=== PATIENT | male | born 1990 | race Caucasian/White ===

== ENCOUNTER 2025-02-14 10:05 | Day surgery (SDC) | payer BC, SELFPAY ==
--- NOTE | 2025-02-06 08:48 | EKG12_ITS ---
Test Reason : PREOP Blood Pressure : */* mmHG Vent. Rate : 82 BPM Atrial Rate : 82 BPM P-R Int : 166 ms QRS Dur : 102 ms QT Int : 370 ms P-R-T Axes : 33 44 23 degrees QTcB Int : 432 ms Normal sinus rhythm Normal ECG Confirmed by JUAN A FRAIRE, JAGRUTI ([id number]), movie editor TRELL BROWN ([id number]) on 02/07/2025 6:48:03 AM Referred By: Jossue Sheffield Confirmed By: JAGRUTI VELAZCO MD
[2025-02-06 09:30] LABS: Hematocrit 40.7 % (40-54); Hemoglobin 14.0 g/dL (13.0-16.5); Immature Granulocytes Count 0.010 X10^3/uL (0.0-0.0); Mean Corp Hgb Conc 34.4 g/dL (32-36); Mean Corpuscular Volume 89.3 fL (80-94); Mean Platelet Vol. 11.3 fl (6.2-12.0); NRBC Flagged by Analyzer 0 % (0-5); Platelet Count 191 K/mm3 (150-450); RBC Distribution Width CV 11.9 % (11.6-14.6); RBC Distribution Width SD 38.5 fl (35.1-43.9); Red Blood Count 4.56 M/mm3 (4.6-6.2); White Blood Count 5.5 K/mm3 (4.4-11.0)
[2025-02-06 11:26] LABS: Anion Gap 12 (5-15); BUN 13 mg/dL (4-19); BUN/Creat Ratio 14.7 RATIO (10-20); Calcium,Total 9.5 mg/dL (7.6-11.0); Carbon Dioxide 22.4 mmol/L (21.0-32.0); Chloride 104 mmol/L (98-108); Glucose 158 mg/dL (70-99); HIV Nonreactive (Nonreactive); Magnesium 1.8 mg/dL (1.5-2.2); Potassium 4.5 mmol/L (3.3-5.1)
[2025-02-14] VITALS (14 sets, daily range): BP systolic 96–146; BP diastolic 58–95; PULSE 77–94; RESP 12–18; TEMP 36.3–36.4; O2SAT 96–100; BMI 43.0
[2025-02-14] MEDS: Lactated Ringers 1,000 ML 15 ML IV (10:40)
[2025-02-14] MEDS: Magnesium 2 GM for ERAS IV (10:41)
--- NOTE | 2025-02-14 11:05 | PCM.PRE.AN2 ---
ASA Classification* ASA Classification ASA Classification: 3 Assessment & Plan Anesthesia* Anesthesia Assessment Anesthesia Assessment: Discussed sedation and/or anesthesia options, risks, benefits, and alternatives with patient/parents/legal guardian/POA. Questions invited. The patient/parents/legal guardian/POA seems to understand and agrees to proceed with anesthesia plan. Reviewed the physical assessment, medical history, allergy history and patient home medications list prior to surgery/procedure/anesthetic and documented any changes. Performed airway and anesthesia risk assessments. Procedural Plan Add'l anesthesia plan details: I had a thorough discussion with the patient in regards to the plan for general anesthesia. We discussed that we will attempt to stabilize his neck is much as possible given his significant cervical radiculopathy symptoms with any sort of neck manipulation. I discussed with the patient the plan for general anesthesia with endotracheal tube. We discussed potential risks or side effects including but not limited to sore throat, injury to teeth gums or lips, allergic reaction to any of the medications we use, IntraOp awareness, postop ventilation, blood transfusion, additional access, IA, stroke, seizure, worsening of his cervical radiculopathy and/or spinal cord injury from neck manipulation. Patient understands and would like to proceed with the surgery. I answered all of his questions to the best my ability. Anesthesia Type Anesthesia Type: General History Source History Obtained from:: Patient and Chart Anesthesia Focused Assessment* Temperature: 97.3 F Pulse Rate: 87 Blood Pressure: 146/95 Respiratory Rate: 18 Pulse Ox: 99 Oxygen Delivery Method: Room Air Airway Assessment Mouth opens: 1 cm Mallampati Score: III Teeth Condition: Intact Neck Range of motion (ROM): Limited ROM (Extremely limited range of motion of his neck as any sort of movement of his neck causes some worsening of his pain in his cervical radiculopathy symptoms.) Labs Anesthesia Preop lab: CBC WBC 5.5 K/mm3 (4.4-11.0) 02/06/25 09:10 02/06/25 RBC 4.56 M/mm3 (4.6-6.2) L 02/06/25 09:10 02/06/25 Hgb 14.0 g/dL (13.0-16.5) 02/06/25 09:10 02/06/25 Hct 40.7 % (40-54) 02/06/25 09:10 02/06/25 Plt Count 191 K/mm3 (150-450) 02/06/25 09:10 02/06/25 CHEMISTRY Potassium 4.5 mmol/L (3.3-5.1) 02/06/25 09:10 02/06/25 Sodium 138 mmol/L (133-145) 02/06/25 09:10 02/06/25 Magnesium 1.8 mg/dL (1.5-2.2) 02/06/25 09:10 02/06/25 BUN 13 mg/dL (4-19) 02/06/25 09:10 02/06/25 Creatinine 0.85 mg/dL (0.70-1.20) 02/06/25 09:10 02/06/25 Glucose 158 mg/dL (70-99) H 02/06/25 09:10 02/06/25 COAG Pre-Assessment Diagnosis/Proposed Procedure Planned Operative Procedure(s): CERVICAL DISC REPLACEMENT C4-5 Anesthesia History 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 When Was Last Pacemaker Check QUESTION #4 FULL TEXT: You/Your Family Experience fever (hyperthermia) with Anesthesia Last Oral Intake Last Oral intake: Last Oral Intake NPO since 08:00 02/14/25 10:30 Meds taken in AM with sips of No 02/14/25 10:30 water? 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 Female No 01/31/25 14:13 HX of Motion Sickness No 01/31/25 14:13 HX of N/V After Surgery No 01/31/25 14:13 Non-Smoker Yes 01/31/25 14:13 Duration of Surgery greater Yes 01/31/25 14:13 than 60 minutes Number of Risk Factors 2 01/31/25 14:13 PONV Score Moderate Risk 01/31/25 14:13 Height & Weight Height & Weight: Anesthesia: Height & Weight Height 5 ft 11 in 02/14/25 10:30 Weight: 140 kg 02/14/25 10:30 Body Mass Index (BMI) 43.0 02/14/25 10:30 Respiratory Assessment Respiratory Assessment - paperback machine operator: Respiratory Tract Infection Hx - paperback machine operator Hx Respiratory Tract Infection No 01/31/25 14:13 STOP Sleep Apnea STOP Sleep Apnea - paperback machine operator: STOP Sleep Apnea - paperback machine operator Hx Hypertension Yes: CONTROLLED WITH MEDS 01/31/25 14:13 Hx Sleep Apnea No 01/31/25 14:13 CPAP BIPAP Do you snore loudly (louder Yes 01/31/25 14:13 than talking or can be heard Do you often feel tired/ No 01/31/25 14:13 fatigued/ sleepy during daytime? Has anyone observed you stop No 01/31/25 14:13 breathing during sleep? STOP Results Positive 01/31/25 14:13 QUESTION #5 FULL TEXT : Do you snore loudly (louder than talking or can be heard through closed doors)? 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 Specify any problems Hx of Preganancy in last 3 N/A 01/31/25 14:13 Months Nurse Filling Out Transfusion [id number] 01/31/25 14:13 & Questions: Date: 01/31/25 01/31/25 14:13 Time: 14:17 01/31/25 14:13 Patient unable to answer at this time (ie. 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: /Reproductive Hx- paperback machine operator Hx Now Gestational Age (in weeks): EDC: Hx Hx Para Hx Section SAB Active Medications Active Medications: Current Medications Generic Name Dose Route Start Last Admin Trade Name Freq PRN Reason Stop Dose Admin Acetaminophen 1,000 mg 02/14/25 12:00 02/14/25 10:44 Acetaminophen 500 Mg Tablet PO 02/14/25 12:01 1,000 mg PREOP ONE Administration Dexamethasone Sodium Phosphate 8 mg 02/14/25 12:00 Dexamethasone 10 Mg/Ml Vial IV 02/14/25 12:01 INTRAOP ONE Dexamethasone Sodium Phosphate 4 mg 02/14/25 12:00 Dexamethasone 4 Mg/Ml Vial IV 02/14/25 12:01 POSTOP ONE Cefazolin Sodium 3 gm/ Sodium 115 mls @ 150 mls/hr 02/14/25 12:00 Chloride IV 02/14/25 12:45 INTRAOP ONE Tranexamic Acid 1,000 mg/ 110 mls @ 440 mls/hr 02/14/25 12:00 Sodium Chloride IV 02/14/25 12:14 INTRAOP ONE Tranexamic Acid 1,000 mg/ 110 mls @ 440 mls/hr 02/14/25 12:00 Sodium Chloride IV 02/14/25 12:14 INTRAOP ONE Magnesium Sulfate 2 gm/ 104 mls @ 208 mls/hr 02/14/25 12:00 02/14/25 10:41 Dextrose IV 02/14/25 12:29 208 mls/hr INTRAOP ONE Administration Lactated Ringer's 1,000 mls @ 15 mls/hr 02/14/25 10:30 02/14/25 10:40 IV 15 mls/hr .Q48H WENDY Administration Insulin Human Lispro 1 - 6 unit 02/14/25 12:00 Insulin Lispro 100 Unit/Ml Insuln.Pen SC Q4H PRN PRN BG>/= 180, SEE PROTOCOL Protocol PFSH Medical History History of steroid therapy Injury of back Back pain Former smoker Hypercholesteremia Hypertension Home Medications ?Medication ?Instructions ?Recorded ?Last Taken ?Type atorvastatin 40 mg tablet 40 mg PO QDAY 10/07/24 02/13/25 History fexofenadine-pseudoephedrine ER 1 tab PO QAM 10/07/24 02/13/25 History 180 mg-240 mg tablet,ext.release 24 hr (Christine-D 24 Hour) lisinopril 20 mg tablet 20 mg PO QDAY 10/07/24 02/13/25 History naproxen 220 mg-diphenhydramine 25 1 tab PO QPM PRN pain 01/31/25 02/07/25 History mg tablet (Aleve PM) Allergy/AdvReac Type Severity Reaction Status Date / Time gabapentin Allergy Mild dizzy Verified 02/14/25 10:28 prednisone Allergy Unknown High blood Verified 02/14/25 10:28 pressure Surgical History H/O wrist surgery Social History Smoking Status: Never smoker Review of Systems (Anesthesia) ROS Narrative System reviewed and no additional complaints, except as documented. Physical Exam Const alert and oriented x3 Neck Neck Narrative: Minimal neck mobility. Resp normal respiratory effort and normal air movement Cardio regular rate Neuro oriented x3 and moves all extremities Neuro Narrative: Preoperative bilateral hand nurse executive strength intact, sensation to light touch decreased in left upper extremity. Negative Laurel's bilaterally. Lower extremity strength with knee flexion extension and plantar and dorsi flexion intact bilaterally. Patient denies bowel or bladder incontinence.
--- NOTE | 2025-02-14 11:58 | PCM.HP.BLA ---
History and Physical MR#: [id number] Acct: [id number] Name: BANDAR WILSON Rep #: [id number] : 1990 Provider: Dr. Jossue Sheffield MD Age/Sex: 34/M Location: [facility] [place] Status: Signed Intake Vital Signs 10/07/2507:28 02/09/2514:52 Height 5 ft 11 in 5 ft 11 in Weight: 312 lb 315 lb BMI 43.4 43.9 Intake Visit Reasons: cervical spine Chief Complaint: Pre op Accompanied by: Self Is patient in pain?: Yes Pain scale (1-10): 7 Allergies gabapentin Allergy (Mild, Verified 02/09/25 14:55) dizzyprednisone Allergy (Unknown, Verified 02/09/25 14:55) High blood pressure Medications ?Medication ?Instructions ?Recorded ?Confirmed ?Type atorvastatin 40 mg tablet 40 mg PO QDAY 10/07/24 02/09/25 History fexofenadine-pseudoephedrine ER 1 tab PO QAM 10/07/24 02/09/25 History 180 mg-240 mg tablet,ext.release 24 hr (Christine-D 24 Hour) lisinopril 20 mg tablet 20 mg PO QDAY 10/07/24 02/09/25 History naproxen 220 mg-diphenhydramine 25 1 tab PO QPM PRN pain 01/31/25 02/09/25 History mg tablet (Aleve PM) Have you fallen in the past year?: No PFSH Medical History History of steroid therapy Injury of back Back pain Former smoker Hypercholesteremia Hypertension Surgical History H/O wrist surgery Social History Smoking Status: Former smoker HPI cervical spine Details: This documentation accurately reflects the service provided and the decisions made by me, Dr. Jossue Sheffield MD 02/09/25 0820. Part of today?s visit was documented by Rashad Henriquez MA, acting as scribe. BANDAR WILSON is a 34 year old M here today for pre op for Cervical Disc Arthroplasty C4-5 on 02-14-25. Patient would like to discuss more about the surgery. He would like to know what he can and can't do after the surgery. The patient is a 34-year-old male presenting for a cervical disc replacement surgery at the C4-5 level. The patient has a history of cervical disc herniation at the C4-5 level, which requires surgical intervention. The planned procedure involves a disc replacement to alleviate pressure on the spinal cord and nerves. The patient is not on any blood thinners and has no major medical issues that would complicate the surgery. The patient also reports a history of sleep apnea, for which no CPAP therapy is currently used. The patient did not complete the second part of the sleep study. - Respiratory: Reports sleep apnea, denies use of CPAP. Attestation: Documentation on this patient encounter was supported using ambient scribe technology/ voice AI technology. The patient consented to recording for the purpose of documenting the encounter. Provider reviewed content of the generated note prior to signature. 01/10/25: BANDAR WILSON is a 34 year old M here today for continued neck pain. He states that his occupational doctors at [employer] told him that it doesn't look like workers comp is going to approve the surgery as they are claiming that he had pre existing conditions that caused the neck pain. He is here today to re-discuss surgery hoping it will be approved through his regular health insurance. He does feel that his symptoms have worsened since his last visit. The pain that radiated down his left arm has become more consistent along with worsened pain in the neck and arm. In the beginning of November he noticed that he was getting cramping/muscle spasms in his arm along with a pulsating sensation that causes his fingers to curl and is unable to open his hand until the cramping stops. this has happened twice in the left arm and once in the right arm. Also when this happened he would get more intense pain down both arms but the left side still being worse. He did have numbness/tingling before his injury but it was not as bad and worsened with the injury. The injury was that he felt a pop in his upper back/low neck which caused immediate pain with numbness/tingling in the left arm. 10/07/24: BANDAR WILSON is a 33 year old M here today for evaluation of neck and back pain. He reports an injury at work in April 2024 where he was installing a radiator into a tractor, he was lifting the radiator above his head and felt a pop in his neck and felt immediate numbness into his left arm. Since then he reports constant pain in his upper back and neck. He reports numbness and tingling into his BUE. He did try PT for a few weeks but he was not able to tolerate it due to the pain. He did see Dr. Johnson in pain management for an injection and his last injection was August 29 2024. He states the injection was minimally helpful for ten days. Dr. Childs recommended that he be evaluated by our office. He did have an MRI in May at [facility] which he reports showed bulged dics and stenosis. Patient is RHD. 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 Patient denies any balance or dexterity issues. He stopped PT after 3-4 weeks due to the pain that it gave him. Will get pain when lifting any weight. He describes the pain at the base of the cervical spine and down into the back. He will get pain at the shoulder blades into the shoulders and constant pain into the arm, down into the elbow and numbness/tingling into the finger tips. Denies any nerve conduction testing. The injection did not help the pain in the neck or back but did give relief from the shooting pain into the arms for about 10 days. Patient is non-diabetic, does not take any blood thinners, he does have hypertension and high cholesterol. Did do a sleep study and he may have mild sleep apnea but did not require a mask. Ortho Exam General General: Yes no acute distress Neurologic: Yes alert and Yes oriented x3 Psychologic: Yes reasonable and appropriate Spine SPINE TESTING CERVICAL THORACIC LUMBAR Musculoskeletal Strength 0=absent - 5=normal Details: Examination of the neck shows midline and bilateral paraspinal tenderness throughout the cervical region. Neurologic motion of upper extremity shows 5 x 5 power in all extremities of left shoulder abduction which is grade 4. Laruel's is negative. Romberg's is positive. Tandem gait shows imbalance. There is no hyperreflexia in lower extremities. Coding Level of Care Code Off vis,est,level 4 Diagnoses Cervical myelopathy with cervical radiculopathy G95.9; M54.12 Time Spent (min) 35 Assessment and Plan Assessment and Plan (1) Cervical myelopathy with cervical radiculopathy: Status: Acute Plan Again reviewed previous imaging. Multilevel cervical disc degeneration and disc bulges noticed. At C4-5 there is left worse than right paracentral disc bulges with possible osteophytes causing cord compression along with foraminal stenosis. Reversal of cervical lordosis noticed. Patient is here for continued neck pain that has worsened since his last visit in September. Again explained imaging findings in detail. Again explained options of treatment which include continued nonoperative treat measures versus surgery. Explained to patient since he has tried physical therapy and injections and did not get any relief with either of these then it might be time to consider surgery. Spoke to patient about the surgical procedure and that there are 2 different surgeries that could be done for his situation. Discussed ACDF versus disc replacement. Discussed pros and cons of each. I recommend C4-5 disc replacement surgery to halt the progression of myelopathy and improve on the radiculopathy. Explained the risks, benefits, pros and cons to the surgical procedure. 1. Cervical disc herniation at C4-5 - The patient is scheduled for a disc replacement surgery to relieve pressure on the spinal cord and nerves. - Post-operative care includes monitoring for breathing issues due to sleep apnea, and ensuring mobility to prevent complications such as blood clots. 2. Sleep apnea - No current CPAP therapy is used. - Post-operative monitoring will include observation for any breathing difficulties, especially during recovery from anesthesia. Discussed this procedure in detail and explained the risks, benefits and alternatives. The risks of surgery include but are not limited to infection, bleeding, injury to nerves and vessels, dysphagia, dysphonia, hematoma formation, need for further surgery, Rodney syndrome, recurrent laryngeal nerve injury, persistent pain, persistent numbness and weakness, DVT, pulmonary embolism, pneumonia, atelectasis, prosthesis malposition, hypermobility, adjacent segment degeneration, spinal cord injury, nerve root injury, cardiopulmonary event. Answered all questions to the patient?s satisfaction. Patient understands and agrees to proceed with surgery. Consent was signed.
[2025-02-14] MEDS: Cefazolin 3 GM in 0.9% Normal Saline (100mL Bag) 100 ML IV (12:38)
--- NOTE | 2025-02-14 12:50 | RAD_ITS ---
PROCEDURE: CERV SPINE 2 OR 3 VIEWS 02/14/2025 REASON FOR EXAM: CERVICAL DISC ARTHROPLASTY C4-5 TECHNIQUE: CERV SPINE 2 OR 3 VIEWS FINDINGS: Fluoroscopic guidance was used intraoperatively for this cervical disc arthroplasty at C4-C5 surgery. Total 5 images were obtained. Total fluoroscopy time was 11.5 seconds Total radiation dose was 4.45 mGy. RAD/Cerv Spine 2 or 3 Views IMPRESSION: Fluoroscopic guidance was used intraoperatively. Please refer to the operative note for further details. IMPRESSION: Fluoroscopic guidance was used intraoperatively. Please refer to the operative note for further details. Reading Location: [id number]
[2025-02-14] MEDS: TRANEXAMIC ACID 1,000 MG in 0.9% Normal Saline (100mL Bag) 100 ML 440 MG IV ×2 (13:05→14:30)
--- NOTE | 2025-02-14 15:07 | PCM.OPRPT ---
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, radiculomyelopathy Post-Operative Diagnosis: Same Surgery/Procedure Performed: C4-5 cervical disc replacement supervisor chemical: Yes Operations Recruiter: Dorcas Nevarez Tasks completed by printing bindery assistant: Closing, Implanting device, Hemostasis: Electrocautery and Retracting Type of Anesthesia: General RN Documented Start/Stop Times: Operation Date: 02/14/25 12:00 Case Time Into Pre-Op 02/14/25 10:19 Out of Pre-Op 02/14/25 12:33 Anesthesia Start 02/14/25 12:38 Into Room 02/14/25 12:38 Procedure Start 02/14/25 13:20 Procedure End 02/14/25 15:04 Procedure Start Time: 13:20 Procedure Stop Time: 15:04 Select all DRAINS/GRAFTS/IMPLANTS that apply: Prosthetic device Prosthetic device details: ZimVie Mobi-C cervical disc replacement prosthesis Estimated Blood Loss: 20 cc Specimen collected: No Description of surgery: Preoperative diagnosis: C4-5 disc degeneration with stenosis, with radiculomyelopathy Postoperative diagnosis: Same Name of procedure: C4-5 anterior cervical disc replacement - Cervical disc replacement C4-5, CPT code 02750 Attending surgeon: Jossue Sheffield M.D. Anesthesia: Gen. endotracheal Estimated blood loss: 20 mL Complications: None Instrumentation used: [employer] Mobi-C cervical disc replacement implants Indications: The patient is a pleasant 34-year-old gentleman who presented with symptoms of neck pain, left upper extremity radiation, hand numbness, progressive difficulty with dexterity and balance. MRI revealed C4-5 disc degeneration with stenosis. In order to halt the progression of myelopathy, patient requested surgical intervention. All risks and benefits of the procedure were explained to the patient. The risks include but are not limited to infection, bleeding, injury to nerves and vessels, vertebral artery injury, spinal cord injury, paralysis, vocal cord paralysis, injury to esophagus, need for further procedures, adjacent segment degeneration, heterotopic ossification, implant loosening, implant failure, DVT, pulmonary embolism, cardiopulmonary event, etc. Procedure: The patient was identified in the preoperative suite using unique patient identifiers. Skin was marked consent was taken and all questions were answered. The patient was then brought back to the operative room and a timeout was performed. General endotracheal anesthesia was given. Intraoperative neuro monitoring leads were applied. The patient was carefully positioned supine on a regular OR table. A lateral x-ray with a C-arm was done to identify the level and to define the incision. The anterior neck was then prepped and draped in the usual fashion. A final timeout was then performed. A transverse skin incision was then taken to the left of midline 2 fingerbreadths above the clavicle. Subcutaneous tissue was then divided with Bovie. Platysma was identified and cut transversely with scissors. The fascial interval between the sternocleidomastoid and the larynx was developed. Omohyoid was identified and mobilized medially and inferiorly. Carotid sheath was laterally while the esophagus with the larynx was retracted medially to reach the prevertebral fascia. All prevertebral layers of fascia were bluntly dissected and a [place] pin was placed into one of the bodies. A lateral C-arm image was used to confirm the correct level. Once this was done longus coli muscle was elevated on both sides at and above and below C4-5 disc. Shadow line retractors were then placed with great care to protect the esophagus. A long handle knife was then used to perform annulotomy at C4-5. Disc fragments were removed with the pituitary. [place] pins were placed in C4 and C5 for disc distraction. Curettes were utilized to remove cartilage from the endplates. Discectomy was performed laterally up to the uncovertebral joints. Adequate decompression was performed, PLL was thinned out and partially resected. Foramina were decompressed without taking down the uncovertebral processes. Once the disc space was prepared, trials of various sizes were utilized. Thorough irrigation was given. Mobi-C anterior cervical disc replacement implant of size 17 x 15 mm with 5 mm height was then placed under fluoroscopic guidance. Adequate positioning was noticed on AP and lateral views. Thorough irrigation was again given. Hemostasis was achieved with FloSeal and bipolar cautery. Closure was done with 3-0 Vicryl for the platysma and subcutaneous tissue layers and 4-0 Monocryl for the skin. Steri-Strips were applied and dressing was done with 4 x 4 gauze and Tegaderm. A cervical collar was then applied. The patient was then woken up from anesthesia extubated and taken to PACU in stable condition. Intraoperative neuro monitoring was performed throughout this procedure. Motor evoked potentials were run periodically. All potentials remained at baseline throughout the procedure. I was present for the entire surgery and performed the surgery myself. Watch Repairer Apprentice Dorcas Nevarez PA-C. My physician ex assistant/program director was a vital part of this case. They were important in appropriate retraction during the case, and protection of soft tissues during the procedure. Their intimate knowledge of the case and my steps aided in safe and expedient completion of the procedure as well as appropriate position of the patient during the surgery. They were also vital in assisting with closure under my direct supervision. Surgical Findings: See operative note Complications Complications: No
--- NOTE | 2025-02-14 15:19 | PCM.POST.ANE ---
Anesthesia: Postop Eval I Current Vital Signs Temperature: 97.5 F Pulse Rate: 85 Blood Pressure: 115/82 Respiratory Rate: 16 Pulse Ox: 99 Oxygen Delivery Method: Nasal Cannula (4L per ERAS) Oxygen Flow Rate (L/min): 4 Assessment Airway patent: Yes Spontaneous unlabored respirations: Yes Mental status: Awake and Calm nausea: No Vomiting: No Anesthesia Complication: No Fluid Hydration Crystalloid volume administer (ml): 1,300 Total IV fluid infused: 1,300 Progress Note Anesthesia document: Postop Eval 1 completed: Yes
--- NOTE | 2025-02-14 17:08 | SUR.PHASEI ---
PATIENT REPORTS HE HAS CHRONIC NUMBNESS/TINGLING TO ARMS WHICH IS ALREADY IMPROVING, STATES COMES AND GOES, FREQUENTLY EXERCISING HANDS. ABLE TO GRASP AND HOLD GLASS OF ICE, FEED SELF.
--- NOTE | 2025-02-14 18:17 | POSTOPAN2_ITS ---
Anesthesia Postop Eval I Sum Postop Eval Completion status Anesthesia document: Postop Eval 1 completed: Yes Anesthesia Postop Eval I Summary Anesthesia Postop Eval I Summary: Anesthesia Postop Eval I: Assessment Summary Airway patent Yes 02/14/25 15:21 NETWORKING [email or web address].[email or web address] Spontaneous unlabored Yes 02/14/25 15:21 NETWORKING SPECIALIST.[email or web address] respirations Mental status Awake,Calm 02/14/25 15:21 NETWORKING SPECIALIST.[email or web address] nausea No 02/14/25 15:21 NETWORKING SPECIALIST.GDOTT Vomiting No 02/14/25 15:21 NETWORKING SPECIALIST.GDOTT Anesthesia Postop Eval I: Fluid Summary Crystalloid volume administer 1,300 02/14/25 15:21 NETWORKING SPECIALIST.GDOTT (ml) Colloids volume administered ( ml) Blood Product volume administered (ml) Total IV fluid infused 1,300 02/14/25 15:21 NETWORKING SPECIALIST.GDOTT Anesthesia Postop Eval I: Summary Notes Anesthesia Complication No 02/14/25 15:21 NETWORKING SPECIALIST.GDOTT Anesthesia Complication Comment: Post-operative progress note Anesthesia: Postop Eval II Evaluation Mental status: Awake and Calm Pain Level: 4 nausea: No Vomiting: No Complications Anesthesia Complication: No
--- NOTE | 2025-02-14 18:17 | PCM.POSTANE2 ---
Anesthesia Postop Eval I Sum Postop Eval Completion status Anesthesia document: Postop Eval 1 completed: Yes Anesthesia Postop Eval I Summary Anesthesia Postop Eval I Summary: Anesthesia Postop Eval I: Assessment Summary Airway patent Yes 02/14/25 15:21 DIRECTOR OF CODING.[email or web address] Spontaneous unlabored Yes 02/14/25 15:21 DIRECTOR OF CODING.GDOTT respirations Mental status Awake,Calm 02/14/25 15:21 DIRECTOR OF CODING.GDOTT nausea No 02/14/25 15:21 DIRECTOR OF CODING.GDOTT Vomiting No 02/14/25 15:21 DIRECTOR OF CODING.GDOTT Anesthesia Postop Eval I: Fluid Summary Crystalloid volume administer 1,300 02/14/25 15:21 DIRECTOR OF CODING.GDOTT (ml) Colloids volume administered ( ml) Blood Product volume administered (ml) Total IV fluid infused 1,300 02/14/25 15:21 DIRECTOR OF [email or web address].GDOTT Anesthesia Postop Eval I: Summary Notes Anesthesia Complication No 02/14/25 15:21 DIRECTOR OF [email or web address].GDOTT Anesthesia Complication Comment: Post-operative progress note Anesthesia: Postop Eval II Evaluation Mental status: Awake and Calm Pain Level: 4 nausea: No Vomiting: No Complications Anesthesia Complication: No
[2025-02-14] MEDS: HYDROcodone Bitartrate/Apap 5/325 Tablet PO (18:33)
== END 2025-02-14 19:48 | disposition home or self-care (01) ==
LOC: SDC 10:11 → AC 10:13
PROVIDERS: PCP Nurse Practitioner Family; Referring Provider Orthopaedic Surgery Orthopaedic Surgery of the Spine; Visit Provider Orthopaedic Surgery Orthopaedic Surgery of the Spine
PROC: (CPT 22856; principal; 2025-02-14 11:30)
DX: M50.121 Cervical disc disorder at C4-C5 level with radiculopathy (principal); M48.02 Spinal stenosis, cervical region; X58.XXXA Exposure to other specified factors, initial encounter; I10 Essential (primary) hypertension; E78.00 Pure hypercholesterolemia, unspecified; Z79.899 Other long term (current) drug therapy; Z87.891 Personal history of nicotine dependence
CPT/HCPCS: 22856; 00600; 36415; 72040; 76000; 80048; 82962; 83036; 83735; 85025; 86703; 86708; 86850; 86900; 86901; 87077; 87081; 93005; A4648; J2405

== ENCOUNTER 2025-04-04 12:00 | Outpatient (RCR) | payer BC, SELFPAY ==
--- NOTE | 2025-03-08 12:13 | HP.PTEVAL_ITS ---
Patient's Visit Information Visit Information Visit Information: BANDAR WILSON is a 34 year old M referred to Physical Therapy by Dr. Jossue Sheffield MD with a diagnosis of Status post cervical disc replacement. Date of Evaluation: 03/08/25 Physical Therapist: Guillermo Rodriguez PT, Cert MDT, OCS Visit Plan Frequency: 2x /Week Duration: 4 Weeks Plan: S/P CERVICAL DISC REPLACEMENT C4-5 02/14 PRECAUTION: NO LIFTING OVER 5# Physical therapy interventions should include cervical ROM, Isometrics , postural strengthening exercises, UE strengthening and activity modification Subjective Subjective: Pt presents ~3 weeks post-op cervical disc replacement on February 14 2025. Pt was injured at work about 1 year ago while working [employer]. Following procedure pt wore hard collar for a full 24 hrs and then after that he weaned off for about 1 week. Prior to surgery pt reports having shooting pains into both arms, considerably worse in the left. Following surgery pt reports having difficulty swallowing due to swelling at the anterior incision site but is gone now, most of the shooting pain is almost complete gone, can return occasionally, however pt reports having sharp/achy pain in the upper thoracic region. Pt reports restrictions are no lifting over 5lbs and to continue with ROM within a pain free range. Pt was taking hydrocodone for 5 days as prescribed following the procedure but now does not take any pain medication, no ibuprofen or tylenol. Pt will have follow-up appt. on Mar 30. Pt reports that sitting makes pain worse. Currently pt is struggling to bath or dress without pain but is able to do it. Pt is not participating in activities around the home like cooking, dishes etc. Pt reports not sleeping well but mostly unrelated to neck pain. Pain can occasionally wake him up at night, pt sleeps on back with an incline. Patient states injury neck lifting at work 1 year ago . MRI showed HNP . Goals to to prior level of function Occupation: currently unemployed SOCAIL: Pain Bilateral Neck: Pain Intensity (Out of 10): 4 Pain Intensity Range: 1 and 5 Bilateral Hand: Pain Intensity (Out of 10): 0 Pain Intensity Range: 0 and 2 Objective Objective: Posture: Forward head posture and rounded shoulders Palpation: No tenderness to palpation with gross cervical or thoracic regions NEURO: c/o occasional paresthesia in hands ,reflexes C-5-6-7 2/3 Cervical ROM: Severe limitation and painful side bending bilaterally, moderate limitation with flex/ext/rotation bilaterally UE MMT: grossly 3+/5 due to pain limitation Resolution Manager: R: 100lbs L: 85lbs (-) Garcia's Sign Balance/Special Test Scores Oswestry Neck Score: 26 Goals Goal 1:: Patient to decrease pain below an average of 4 to improve quality of life and participation in ADL's Goal Time Frame: 4-6 Weeks Goal 2:: Patient to increase cervical ROM from severe to moderate limitation for function of recovery to improve quality of life and participation in ADL' and turn neck when driving a car Goal Time Frame: 4-6 Weeks Goal 3:: 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 Goal Time Frame: 4-6 Weeks Goal 4:: Patient to improve Neck Oswestry score to 40% or less to improve quality of life and participation in ADL's. 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 thus benefit from skilled PT Rehabilitation Potential: Good Anticipated Interventions Patient/Client Instruction: Educate patient on: Condition, Plan of Care, Risk Factors and Benefits of Fitness Program For the Purpose of:: To assume or resume ADL's, To improve safety, To improve health and function, To foster healthy habits, To improve decision making, To improve self management, To prevent re-injury and To improve ability to perform tasks related to life management Therapeutic Exercise to Include: Body mechanics, Postural training, Active ROM and Scapular Strength/Stabilization For the Purpose of:: To decrease pain, To increase ROM, To improve ability to perform ADL's, To increase tolerance to activity/condition/position, To increase flexibility/ROM, To reduce risk of recurrence, To improve safety, To foster heal thy habits, To prevent re-injury, To improve ability to perform tasks related to life management and To improve tolerance to ADL's Text: Thank you for the opportunity to evaluate your patient. For Medicare and Medicare HMO plans, please review the plan of care and approve it. It will need to be FAXED BACK to us at [phone] for Medicare purposes. For Medicare only, by signing this I certify the plan of care. Please let me know if there are questions or concerns regarding this plan of care. Physician Signature: Date:
--- NOTE | 2025-04-04 12:25 | HP.PTDCSUM ---
Discharge Summary D/C summary: It has been my pleasure to treat BANDAR WILSON referred by Dr. Jossue Sheffield MD, with the diagnosis of Status post cervical disc replacement 02/14 for a total of 9 visit(s). Discharge Date: 04/04/25 Please see the following information for a summary of their discharge status. Subjective Subjective: Doing well Occasional pain 10-15# lifting restriction x-rays looked Pain Bilateral Neck: Pain Intensity (Out of 10): 1 Bilateral Hand: Pain Intensity (Out of 10): 1 Overall Improvement % Improvement: 70 Objective Objective/Function: Posture: Forward head posture and rounded shoulders Palpation: No tenderness to palpation with gross cervical or thoracic regions NEURO: denies paresthesia in hands ,reflexes C-5-6-7 2/3 Cervical ROM: flexion WFL ,extension min loss ,lateral flexion min loss,rotation min loss UE MMT: grossly 4/5 Social Science Research Assistant: R: 110lbs L: 125lbs Goals Goal 1:: Patient to decrease pain below an average of 4 to improve quality of life and participation in ADL's Goal Progress: Goal Met Goal 2:: Patient to increase cervical ROM from severe to moderate limitation for function of recovery to improve quality of life and participation in ADL' and turn neck when driving a car Goal Progress: Goal Met Goal 3:: Patient to increase meter/relay craftsman strengths by 5-10# to improve ability to participate in functional activities. Goal Progress: Goal Met Goal 4:: Patient to improve Neck Oswestry score to 40% or less to improve quality of life and participation in ADL's. Goal Progress: Goal Met Goal 5:: Patient to be I with [facility] for cervical Plan Plan: D/C D/C Information Discharge Comments: HEP d/c sentence: If there are questions or concerns regarding this patient's physical therapy, please feel free to call me at [phone]. Thank you for the referral of this patient. Sincerely, Guillermo Rodriguez, PT, Cert MDT, OCS Balance/Gait/Functional tests Balance/Special Test Scores Oswestry Neck Score: 2 Improvement % Improvement: 70
== END 2025-04-04 19:00 | disposition home or self-care (01) ==
LOC: PT 12:00
PROVIDERS: PCP Nurse Practitioner Family; Visit Provider Orthopaedic Surgery Orthopaedic Surgery of the Spine
DX: Z98.890 Other specified postprocedural states (principal)
CPT/HCPCS: 97110; 97161; 97530